=== PATIENT | female | born 1990 | race African-American/Black ===

== ENCOUNTER 2024-12-16 23:05 | Observation (INO) | payer SELFPAY ==
--- NOTE | 2024-12-16 23:05 | PC.NURSE ---
Pt arrives to unit from ED with contractions and leaking.
[2024-12-16 23:44] VITALS: PULSE 92; O2SAT 100
[2024-12-16 23:49] VITALS: PULSE 92; O2SAT 100
[2024-12-17 00:10] VITALS: BP 122/58; PULSE 94
--- NOTE | 2024-12-17 00:10 | PC.NURSE ---
Called Dr. Delarosa, update on pt, contractions, negative ROM plus, and cervical exam. Orders received to discharge pt with instructions to keep next scheduled appointment and when to return to the labor and delivery unit.
[2024-12-17 00:26] VITALS: BP 117/73; PULSE 87
--- NOTE | 2024-12-17 00:29 | PC.NURSE ---
Addendum entered by Sarah Taylor RN 12/17/24 01:38: Pt verbalizes understanding. Original Note: Pt discharged with instructions to keep next scheduled appointment and when to return to the labor and delivery unit.
[2024-12-17 01:12] VITALS: BMI 36.4
--- NOTE | 2024-12-17 01:13 | OBADM ---
This patient, Harjeet Ch, admitted to the OB room Labor/Delivery/Recovery 105 for observation. Patient/family oriented to hospital policies and general routines including ID bracelet, bed and alarms, visiting hours, pain management, procedures, bathroom and other care routines, personal items, smoking policy, room service/diet, and visiting hours. Patient/Family are encouraged to report perceived risks to care and to ask questions if they do not understand what they are told or what they should do.
--- NOTE | 2024-12-27 13:30 | PM.OBTRLD ---
OB - Triage/Final Diagnosis Visit Information Comments/Additional reasons for admission: I have assessed the risk for this patient, Harjeet Ch, and determined that she would benefit from observation care. Final Diagnosis (1) Threatened labor: Code(s): O47.9 - False labor, unspecified Status: Acute
== END 2024-12-17 00:29 | disposition home or self-care (01) ==
PROVIDERS: Admitting Provider Obstetrics & Gynecology; Visit Provider Obstetrics & Gynecology
DX: O47.1 False labor at or after 37 completed weeks of gestation (principal); Z3A.37 37 weeks gestation of pregnancy
CPT/HCPCS: 84112; G0378; G0379